=== PATIENT | female | born 1940 | race Caucasian/White ===

== ENCOUNTER 2016-02-28 10:56 | Outpatient (CLI) | payer OTHER ==
[2016-02-28 13:01] LABS: BASOPHILS # (AUTO) 0.1 K/uL (0-0.2); BASOPHILS % (AUTO) 0.8 % (0.0-3.0); EOSINOPHILS # (AUTO) 0.3 K/ul (0.0-0.7); EOSINOPHILS % (AUTO) 4.1 % (0.0-7.0); HEMATOCRIT 46.4 % (37.0-47.0); HEMOGLOBIN 15.2 g/dl (12.0-16.0); IMMATURE GRANULOCYTE % (AUTO) 0.3 % (0.0-5.0); LYMPHOCYTES # (AUTO) 2.3 K/uL (0.60-3.4); LYMPHOCYTES % (AUTO) 31.6 (10.0-50.0); MEAN CORPUSCULAR HEMOGLOBIN 29.3 pg (27.0-31.0); MEAN CORPUSCULAR HGB CONC 32.8 (31.8-35.4); MEAN CORPUSCULAR VOLUME 89.4 fl (81.0-99.0); MONOCYTES # (AUTO) 0.5 K/uL (0.4-2.0); MONOCYTES % (AUTO) 7.4 (0-10); NEUTROPHILS # (AUTO) 4.1 K/ul (2.0-6.9); NEUTROPHILS % (AUTO) 55.8; PLATELET COUNT 209 10^3/uL (140-440); RED BLOOD COUNT 5.19 10^6/ul (4.20-5.40); WHITE BLOOD COUNT 7.29 K/ul (4.6-10.2)
[2016-02-28 13:09] LABS: BILIRUBIN,URINE Negative (NEGATIVE); KETONES,URINE Negative (NEGATIVE); LEUKOCYTE ESTERASE ,URINE 1+ (NEGATIVE); NITRITE,URINE Negative (NEGATIVE); PH,URINE 5.5 (5-9); PROTEIN,URINE Negative (NEGATIVE); URINE, BLOOD Trace-intact (NEGATIVE)
[2016-02-28 13:15] LABS: ADD URINE MICROSCOPIC YES
[2016-02-28 13:19] LABS: BILIRUBIN,TOTAL 0.77 mg/dL (0.00-1.20); CALCIUM 9.3 mg/dL (8.2-10.2); POTASSIUM 3.8 mmol/L (3.5-5.10); TOTAL PROTEIN 7.3 g/dL (5.8-8.1)
[2016-02-28 13:27] LABS: CHOL/HDL RATIO 5.1 (4.5-5.5)
[2016-02-28 16:00] LABS: ANION GAP 14.8
[2016-02-28 16:01] LABS: BUN/CREATININE RATIO 9.9; CREATININE 1.01 mg/dL (0.60-1.30)
[2016-02-28 16:02] LABS: ALBUMIN 3.8 g/dL (3.4-5.0); ALBUMIN/GLOBULIN RATIO 1.09
== END 2016-02-28 10:57 | disposition home or self-care (01) ==
LOC: LAB 10:56
PROVIDERS: ATTEND General Practice
DX: E78.5 Hyperlipidemia, unspecified (principal); I10 Essential (primary) hypertension; N18.3 Chronic kidney disease, stage 3 (moderate); K21.9 Gastro-esophageal reflux disease without esophagitis; G25.81 Restless legs syndrome; I49.3 Ventricular premature depolarization; E88.81 Metabolic syndrome and other insulin resistance; Z79.899 Other long term (current) drug therapy
CPT/HCPCS: 36415; 80053; 80061; 81001; 83525; 85025; 87086

== ENCOUNTER 2016-03-12 10:47 | Outpatient (CLI) ==
--- NOTE | 2016-03-13 10:36 | MAMMO ---
EXAM: Digital screening mammogram HISTORY: Screening mammogram COMPARISON: Plain film mammogram 05/30/2009 FINDINGS: Bilateral CC and MLO views of the breasts were performed digitally and demonstrate fatty breast density (up to 25%). There is no abnormal nodule or calcification. There is no significant i nterval change. IMPRESSION: No suspicious nodule or calcification. RECOMMENDATION: Annual screening mammogram BIRADS category I: Negative
== END 2016-03-12 10:48 | disposition home or self-care (01) ==
LOC: RAD 10:47
PROVIDERS: ATTEND General Practice
DX: Z12.31 Encounter for screening mammogram for malignant neoplasm of breast (principal)

== ENCOUNTER 2016-06-21 08:40 | Outpatient (CLI) ==
[2016-06-21 12:53] LABS: BASOPHILS # (AUTO) 0.1 K/uL (0-0.2); BASOPHILS % (AUTO) 0.7 % (0.0-3.0); EOSINOPHILS # (AUTO) 0.2 K/ul (0.0-0.7); EOSINOPHILS % (AUTO) 3.5 % (0.0-7.0); HEMATOCRIT 45.3 % (37.0-47.0); HEMOGLOBIN 14.9 g/dl (12.0-16.0); IMMATURE GRANULOCYTE % (AUTO) 0.3 % (0.0-5.0); LYMPHOCYTES # (AUTO) 2.2 K/uL (0.60-3.4); LYMPHOCYTES % (AUTO) 31.2 (10.0-50.0); MEAN CORPUSCULAR HEMOGLOBIN 29.6 pg (27.0-31.0); MEAN CORPUSCULAR HGB CONC 32.9 (31.8-35.4); MEAN CORPUSCULAR VOLUME 90.1 fl (81.0-99.0); MONOCYTES # (AUTO) 0.6 K/uL (0.4-2.0); MONOCYTES % (AUTO) 7.9 (0-10); NEUTROPHILS # (AUTO) 3.9 K/ul (2.0-6.9); NEUTROPHILS % (AUTO) 56.4; PLATELET COUNT 191 10^3/uL (140-440); RED BLOOD COUNT 5.03 10^6/ul (4.20-5.40); WHITE BLOOD COUNT 6.95 K/ul (4.6-10.2)
[2016-06-21 13:11] LABS: BILIRUBIN,URINE 1+ (NEGATIVE); KETONES,URINE Negative (NEGATIVE); LEUKOCYTE ESTERASE ,URINE Negative (NEGATIVE); NITRITE,URINE Negative (NEGATIVE); PH,URINE 5.5 (5-9); PROTEIN,URINE Trace (NEGATIVE); URINE, BLOOD Negative (NEGATIVE)
[2016-06-21 13:18] LABS: ADD URINE MICROSCOPIC YES
[2016-06-21 13:22] LABS: ALBUMIN 3.6 g/dL (3.4-5.0); ALBUMIN/GLOBULIN RATIO 0.97; ANION GAP 13.4; BILIRUBIN,TOTAL 0.72 mg/dL (0.00-1.20); BUN/CREATININE RATIO 10.75; CALCIUM 9.1 mg/dL (8.2-10.2); CHOL/HDL RATIO 4.2 (4.5-5.5); CREATININE 0.93 mg/dL (0.60-1.30); POTASSIUM 3.4 mmol/L (3.5-5.10); TOTAL PROTEIN 7.3 g/dL (5.8-8.1)
== END 2016-06-21 08:41 | disposition home or self-care (01) ==
LOC: LAB 08:40
PROVIDERS: ATTEND General Practice
DX: E78.5 Hyperlipidemia, unspecified (principal); I10 Essential (primary) hypertension; N18.3 Chronic kidney disease, stage 3 (moderate); Z79.899 Other long term (current) drug therapy
CPT/HCPCS: 36415; 80053; 80061; 81001; 85025

== ENCOUNTER 2016-06-28 11:03 | Outpatient (CLI) | payer OTHER ==
[2016-06-28 11:38] LABS: CREATINE KINASE 82 U/L
[2016-06-28 11:48] LABS: D-DIMER 332.02 ng/mL (<500)
--- NOTE | 2016-06-28 11:58 | DI ---
EXAM: Chest two view, frontal and lateral views. HISTORY: Chest pain. COMPARISON: 11/27/2010. FINDINGS: The heart size is normal. There is no pulmonary vascular congestion. The lungs are etz r save for calcified granulomatous changes. No pleural effusion or pneumothorax is seen. No acute osseous abnormality identified. Since the prior study, there has been no significant interval wagner e. IMPRESSION: No acute cardiopulmonary process.
== END 2016-06-28 11:04 | disposition home or self-care (01) ==
LOC: LAB 11:03
PROVIDERS: ATTEND General Practice
DX: R07.9 Chest pain, unspecified (principal)
CPT/HCPCS: 36415; 82550; 84484; 85379; 93005; 93010

== ENCOUNTER 2016-09-27 08:39 | Outpatient (CLI) ==
[2016-09-27 12:36] LABS: BASOPHILS # (AUTO) 0.1 K/uL (0-0.2); BASOPHILS % (AUTO) 0.9 % (0.0-3.0); EOSINOPHILS # (AUTO) 0.2 K/ul (0.0-0.7); HEMATOCRIT 43.7 % (37.0-47.0); HEMOGLOBIN 14.5 g/dl (12.0-16.0); IMMATURE GRANULOCYTE % (AUTO) 0.3 % (0.0-5.0); LYMPHOCYTES % (AUTO) 28.9 (10.0-50.0); MEAN CORPUSCULAR HEMOGLOBIN 29.5 pg (27.0-31.0); MEAN CORPUSCULAR HGB CONC 33.2 (31.8-35.4); MONOCYTES # (AUTO) 0.5 K/uL (0.4-2.0); MONOCYTES % (AUTO) 7.8 (0-10); NEUTROPHILS # (AUTO) 4.1 K/ul (2.0-6.9); NEUTROPHILS % (AUTO) 59.1; PLATELET COUNT 188 10^3/uL (140-440); RED BLOOD COUNT 4.91 10^6/ul (4.20-5.40); WHITE BLOOD COUNT 6.92 K/ul (4.6-10.2)
[2016-09-27 12:50] LABS: BILIRUBIN,URINE Negative (NEGATIVE); KETONES,URINE Negative (NEGATIVE); LEUKOCYTE ESTERASE ,URINE Negative (NEGATIVE); NITRITE,URINE Negative (NEGATIVE); PROTEIN,URINE Negative (NEGATIVE); URINE, BLOOD Trace-intact (NEGATIVE)
[2016-09-27 12:55] LABS: ADD URINE MICROSCOPIC YES
[2016-09-27 13:03] LABS: BACTERIA,URINE TRACE (NOT PRESENT)
[2016-09-27 13:05] LABS: ALBUMIN 3.8 g/dL (3.4-5.0); ALBUMIN/GLOBULIN RATIO 1.15; ANION GAP 17.7; BILIRUBIN,TOTAL 0.87 mg/dL (0.00-1.20); BUN/CREATININE RATIO 12.06; CALCIUM 9.6 mg/dL (8.2-10.2); CHOL/HDL RATIO 4.5 (4.5-5.5); CREATININE 1.16 mg/dL (0.60-1.30); POTASSIUM 3.7 mmol/L (3.5-5.10); TOTAL PROTEIN 7.1 g/dL (5.8-8.1)
== END 2016-09-27 08:40 | disposition home or self-care (01) ==
LOC: LAB 08:39
PROVIDERS: ATTEND General Practice
DX: E78.5 Hyperlipidemia, unspecified (principal); I10 Essential (primary) hypertension; K21.9 Gastro-esophageal reflux disease without esophagitis; N18.3 Chronic kidney disease, stage 3 (moderate); Z79.899 Other long term (current) drug therapy
CPT/HCPCS: 36415; 80053; 80061; 81001; 85025

== ENCOUNTER 2016-12-02 14:38 | Observation (INO) ==
[2016-12-02 16:22] VITALS: BMI 30.2
[2016-12-02 16:52] LABS: BASOPHILS # (AUTO) 0.1 K/uL (0-0.2); BASOPHILS % (AUTO) 0.6 % (0.0-3.0); EOSINOPHILS # (AUTO) 0.1 K/ul (0.0-0.7); EOSINOPHILS % (AUTO) 1.4 % (0.0-7.0); HEMATOCRIT 42.5 % (37.0-47.0); HEMOGLOBIN 14.6 g/dl (12.0-16.0); IMMATURE GRANULOCYTE % (AUTO) 0.4 % (0.0-5.0); LYMPHOCYTES % (AUTO) 20.9 (10.0-50.0); MEAN CORPUSCULAR HEMOGLOBIN 29.4 pg (27.0-31.0); MEAN CORPUSCULAR HGB CONC 34.4 (31.8-35.4); MEAN CORPUSCULAR VOLUME 85.5 fl (81.0-99.0); MONOCYTES # (AUTO) 0.8 K/uL (0.4-2.0); MONOCYTES % (AUTO) 8.1 (0-10); NEUTROPHILS # (AUTO) 6.6 K/ul (2.0-6.9); NEUTROPHILS % (AUTO) 68.6; PLATELET COUNT 201 10^3/uL (140-440); RED BLOOD COUNT 4.97 10^6/ul (4.20-5.40); WHITE BLOOD COUNT 9.55 K/ul (4.6-10.2)
[2016-12-02 17:33] LABS: ALANINE AMINOTRANSFERASE 25 U/L (12-78); ALBUMIN 3.7 g/dL (3.4-5.0); ALBUMIN/GLOBULIN RATIO 1.06; ALKALINE PHOSPHATASE 112 U/L (53-141); ANION GAP 15.6; ASPARTATE AMINO TRANSFERASE 28 U/L (15-37); BILIRUBIN,TOTAL 0.61 mg/dL (0.00-1.20); BLOOD UREA NITROGEN 12 mg/dL (7-18); BUN/CREATININE RATIO 12.24; CALCIUM 9.7 mg/dL (8.2-10.2); CARBON DIOXIDE 21 mmol/L (23-31); CHLORIDE 111 mmol/L (98-107); CHOL/HDL RATIO 4.6 (4.5-5.5); CHOLESTEROL 151 mg/dL (0-200); CREATINE KINASE 68 U/L; CREATININE 0.98 mg/dL (0.60-1.30); GLUCOSE 93 mg/dL (82-115); HDL CHOLESTEROL 33 mg/dL (35-80); MYOGLOBIN 82 ng/ml; POTASSIUM 3.6 mmol/L (3.5-5.10); SODIUM 144 mmol/L (136-145); TOTAL PROTEIN 7.2 g/dL (5.8-8.1); TRIGLYCERIDES 206 mg/dL (30-150); VLDL CHOLESTEROL 41 mg/dL (2-30)
[2016-12-02 18:28] LABS: BILIRUBIN,URINE Negative (NEGATIVE); KETONES,URINE Negative (NEGATIVE); LEUKOCYTE ESTERASE ,URINE Negative (NEGATIVE); NITRITE,URINE Negative (NEGATIVE); PROTEIN,URINE Negative (NEGATIVE); URINE, BLOOD Trace-intact (NEGATIVE)
--- NOTE | 2016-12-02 18:28 | DI ---
EXAM: Two-view chest HISTORY: Chest discomfort TECHNIQUE: Frontal and lateral views of the chest were obtained. Comparison 06/28/2016. FINDINGS: The heart is normal size. Lungs are clear. The pulmonary vasculature appears normal. Th e osseous structures are normal. IMPRESSION: No active cardiopulmonary disease.
[2016-12-02 18:29] LABS: ADD URINE MICROSCOPIC YES
[2016-12-02] MEDS ORDERED: ADDITIVE ONLY IV SCH (18:30)
[2016-12-02] MEDS ORDERED: POTASSIUM CHLORIDE IV SCH (18:30)
[2016-12-02] MEDS ORDERED: [UNRECOGNIZED DRUG - OTHER] IV SCH (18:30)
[2016-12-02] MEDS ORDERED: INFUVITE ADULT IV SCH (18:30)
[2016-12-02] MEDS ORDERED: INFUVITE ADULT IV ONE (19:08)
[2016-12-02] MEDS: INFUVITE ADULT 10 ML in D5%-1/2NS-KCL 20 MEQ/L IV SOL 1,000 ML IV SCH (19:30)
[2016-12-02] MEDS: LOVENOX SUBCUT SCH (19:31)
[2016-12-02] MEDS ORDERED: ATORVASTATIN CALCIUM 5 MG PO SCH (21:00)
[2016-12-03 05:05] LABS: BASOPHILS # (AUTO) 0.1 K/uL (0-0.2); BASOPHILS % (AUTO) 0.6 % (0.0-3.0); EOSINOPHILS # (AUTO) 0.2 K/ul (0.0-0.7); HEMATOCRIT 39.7 % (37.0-47.0); HEMOGLOBIN 13.5 g/dl (12.0-16.0); IMMATURE GRANULOCYTE % (AUTO) 0.2 % (0.0-5.0); LYMPHOCYTES # (AUTO) 2.7 K/uL (0.60-3.4); MEAN CORPUSCULAR HEMOGLOBIN 29.4 pg (27.0-31.0); MEAN CORPUSCULAR VOLUME 86.5 fl (81.0-99.0); MONOCYTES # (AUTO) 0.7 K/uL (0.4-2.0); MONOCYTES % (AUTO) 8.3 (0-10); NEUTROPHILS # (AUTO) 4.5 K/ul (2.0-6.9); NEUTROPHILS % (AUTO) 54.9; PLATELET COUNT 185 10^3/uL (140-440); RED BLOOD COUNT 4.59 10^6/ul (4.20-5.40); WHITE BLOOD COUNT 8.11 K/ul (4.6-10.2)
[2016-12-03 05:36] LABS: ALBUMIN 3.3 g/dL (3.4-5.0); ANION GAP 11.4; BUN/CREATININE RATIO 10.98; CALCIUM 9.1 mg/dL (8.2-10.2); CREATININE 0.91 mg/dL (0.60-1.30); PHOSPHORUS 3.1 mg/dL (2.8-4.1); POTASSIUM 3.4 mmol/L (3.5-5.10)
[2016-12-03] MEDS ORDERED: ATROPINE SULFATE PFS ONE (07:16)
[2016-12-03] MEDS ORDERED: DOBUTAMINE 250 ML IV ONE (07:16)
[2016-12-03] MEDS: NON-FORMULARY MEDICATION (Esomeprazole Magnesium [Nexium] 20 MG) PO SCH ×22 (08:45)
[2016-12-03] MEDS: NON-FORMULARY MEDICATION (Losartan Potassium [Cozaar] 100 MG) PO SCH ×22 (08:46)
[2016-12-03] MEDS: GABAPENTIN 100 MG PO PRN ×22 (08:46)
[2016-12-03] MEDS: NON-FORMULARY MEDICATION (Amlodipine Besylate [Amlodipine Besylate] 10 MG) PO SCH ×22 (08:46)
[2016-12-03] MEDS: LOVENOX SUBCUT SCH (08:47)
[2016-12-03] MEDS ORDERED: ATORVASTATIN CALCIUM 10 MG PO SCH ×22 (09:00)
--- NOTE | 2016-12-03 09:49 | DOBSTECHO ---
Ordering Physician: MARISSA SIMMONS Date of Test: 12/03/16 Reason for Examination: CHEST PAIN, HYPERTENSION, CAD Current Medications: MECLIZINE, NEXIUM, LIPITOR, COZAAR, GABAPENTIN Height: 66" Weight: 187 LBS Target Heart Rate: 123/145 ST Segment Stage Time HR BPM BP mmhg Rhythm +/- Up Down Comments/Symptoms Control Sitting 94 170/82 SR X NONE Dobutamine 250mg/D5W 5cmg/KG/mn 10cmg/KG/mn 3" 114 172/70 SR X NONE 15cmg/KG/mn 1:27 131 SR X NONE 20cmg/KG/mn 25cmg/KG/mn 30cmg/KG/mn 35cmg/KG/mn 40cmg/KG/mn Time: 3" HR B/P Time: 8 HR B/P Time: HR B/P Recovery 123 158/72 Recovery 100 Recovery Total Time: 4:27 Maximum Heart Rate Reached: 131 Interpretation: 1. NO EVIDENCE OF ISCHEMIA BY ST-T WAVE 2. NO CHEST PAIN OR DISCOMFORT 3. LEFT VENTRICULAR CONTRACTILITY--NORMAL RESTING AND DURING DOBUTAMINE INFUSION MTDD
--- NOTE | 2016-12-03 09:52 | ECHOSTRESS ---
Date of Exam: 12/03/16 Ordering Physician: AMRISSA SIMMONS Reason for Echo: CAD, CHEST PAIN, HYPERTENSION, DOBUTAMINE STRESS--NO ISCHEMIA M-Mode Normal Adult Results LV Dimensions Normal Adult Results AoV Opening excursions >1.6 LVEDD-base- 3.5-5.8 Ao root dimensions 2.0-3.7 LVESD-base- 3.1-4.6 L. Atrium dimensions 1.9-3.8 Post. Wall thickness 0.8-1.1 IV septum (thickness) 0.7-1.2 Post. Wall excursion 0.72-1.3 Septal motion Systolic motion R. Ventricular cavity 1.5-2.0 LVEF 60% Paradoxical septal wall motion 2-D: NORMAL LEFT VENTRICULAR CONTRACTILITY--RESTING AND DURING DOBUTAMINE INFUSION M-MODE: MV: AV: TV: PV: CHAMBER SIZE: WALL MOTION: NORMAL LEFT VENTRICULAR CONTRACTILITY--RESTING AND DURING DOBUTAMINE INFUSION PERICARDIUM: INTERPRETATION: 1. NORMAL LEFT VENTRICULAR CONTRACTILITY--RESTING AND DURING DOBUTAMINE INFUSION MTDD
--- NOTE | 2016-12-03 10:26 | ECHO2D ---
Date of Exam: 12/03/16 Ordering Physician: MARISSA SIMMONS Room #: [id number] Reason for Echo: CHEST PAIN, HYPERTENSION, CAD M-Mode Normal Adult Results LV Dimensions Normal Adult Results AoV Opening excursions >1.6 >1.6 LVEDD-base- 3.5-5.8 5.0 Ao root dimensions 2.0-3.7 3.2 LVESD-base- 3.1-4.6 L. Atrium dimensions 1.9-3.8 5.1 Post. Wall thickness 0.8-1.1 1.1 IV septum (thickness) 0.7-1.2 1.0 Post. Wall excursion 0.72-1.3 NORMAL Septal motion NORMAL Systolic motion R. Ventricular cavity 1.5-2.0 NORMAL LVEF 60% 50% Paradoxical septal wall motion NORMAL 2-D : NORMAL LEFT VENTRICULAR CONTRACTILITY--NORMAL LEFT VENTRICLE SIZE, ENLARGED LEFT ATRIAL SIZE, NO EFFUSION, NO THROMBUS M-MODE: MV: NORMAL AV: NORMAL TV: NORMAL PV: CHAMBER SIZE: ENLARGED LEFT ATRIAL CAVITY WALL MOTION: NORMAL PERICARDIUM: NORMAL INTERPRETATION: 1. ENLARGED LEFT ATRIAL CAVITY 2. NORMAL VALVES 3. NORMAL LEFT VENTRICLE SIZE 4. NORMAL LEFT VENTRICLE EJECTION FRACTION 50% MTDD
--- NOTE | 2016-12-03 11:27 | CONS ---
DATE OF CONSULTATION: 12/02/16 REASON FOR CONSULTATION/HISTORY OF PRESENT ILLNESS: 76 year old white female who is a direct admit from Dr. Velez's office with right sided chest pain. She states that the pain originated on 11/27/16 in the middle of her chest on the breast bone and then over the next several days moved down into the tissue to the right of her breast bone and radiating to her right shoulder. She is not experiencing any shortness of breath. She describes the pain of dull tissue pain, it comes and goes and isn't related to exertion. She does have a history of hyperglycemia,dyslipidemia and hypertension along with Metabolic syndrome. REVIEW OF SYSTEMS: CONSTITUTIONAL: No night sweats. No fatigue, malaise, lethargy. No fever or chills. HEENT: Eyes: No visual changes. No eye pain. No eye discharge. ENT: No sinus drainage. No epistaxis. No sinus pain. No sore throat. No odynophagia. No ear pain. No congestion. RESPIRATORY: No cough, no congestion. No hemoptysis. No shortness of breath. CARDIOVASCULAR: No angina symptoms. No CHF symptoms. No atypical chest pain for CAD. No palpitations. No orthopnea. Sternal pain radiating to the right scapula. GASTROINTESTINAL: No abdominal pain. No nausea or vomiting. No diarrhea or constipation. No hematemesis. No hematochezia. GENITOURINARY: No urgency. No frequency. No dysuria. No hematuria. No obstructive symptoms. No discharge. No pain. No significant abnormal bleeding. MUSCULOSKELETAL: No musculoskeletal pain. No joint swelling. Full range of motion. NEUROLOGICAL: No headache. No neck pain. No syncope. No seizures. No dizziness. Alert and oriented. PSYCHIATRIC: Not anxious. No depression. No suicidal thoughts. No homicidal thoughts. Affect and mood are appropriate. SKIN: No rash. No lesions. No wounds. Intact. ENDOCRINE: No unexplained weight loss. No weight gain. HEMATOLOGIC/LYMPHATIC: No anemia. No purpura. No petechiae. No prolonged or excessive bleeding. No palpable lymph nodes. MEDICATIONS: Meclizine 25mg PO PRN Losartan 100mg PO daily Neurontin 100mg at bedtime Lipitor 10mg daily Norvasc 10mg daily Nexium 20mg daily ALLERGIES: Requip PAST MEDICAL HISTORY: Chronic kidney disease GERD Dyslipidemia Hypertension Metabolic syndrome Restless leg syndrome History of left nasal septum deviation Hyperglycemia Obesity Macular degeneration PAST SURGICAL HISTORY: Colonoscopy in August 2011 Stress test in 2009 at [facility] EKG and Chest x-ray on 07/03 at [place] Mammogram February 2016 at [place]. Cholecystectomy, 1984 SOCIAL/PERSONAL/FAMILY HISTORY: The patient has never been a smoker, she denies any alcohol or illicit drug use. PHYSICAL EXAMINATION: VITAL SIGNS: Temperature 97.7, heart rate 98, respirations 20, pulse ox 96, blood pressure 142/82. 187 pounds. HEENT: Head normocephalic, atraumatic. Eyes: Extraocular muscles are intact. Pupils are equal, round and reactive to light and accommodation. Ears: No lesions. Nose appeared normal. Throat: No exudate or erythema. NECK: Supple. No JVD, no carotid bruit. No lymphadenopathy or thyromegaly. LUNGS: Clear with diminished breath sounds bilaterally equal with no adventitious breath sounds. Percussion note normal. Chest symmetrical. HEART: S1, S2, no S3. No murmurs, clicks or rubs. No cyanosis or clubbing. No ascites. Pulses: Dorsalis pedis and posterior tibial pulses +1 to +2 both sides. ABDOMEN: Soft. Nontender. Bowel sounds active times four quadrant. No CVA tenderness. No mass felt. No hepatosplenomegaly. EXTREMITIES: No edema. Full range of motion of all extremities, equal. No joint swelling. Negative Homans's sign bilaterally. NEUROLOGIC: No focal deficit. Cranial nerves II through XII are grossly intact. No headache, no double vision or headache. Alert and oriented to person, place and time. SKIN: Dry. Intact. Turgor - normal. [place] and warm. LYMPHATIC: No palpable lymph nodes/no lymphedema. MUSCULOSKELETAL: Normal joints with no swelling. Muscle tone is normal. ASSESSMENT: 1. Midchest pain 2. Atypical chest pain 3. Hypertension 4. Dyslipidemia 5. Obesity 6. Hyperglycemia RECOMMENDATIONS: 1. We will do Lipids, T4 TSH and A1c 2. The patient is to continue on routine telemetry 3. She will have a CBC and CMP daily 4. Will do Echo and Stress echo tomorrow morning 5. All Cardiac markers will be monitored 6. EKG and chest x-ray 7. Continue Nexium, Norvasc, Losartan, Neurontin and Lipitor. MTDD
[2016-12-03] MEDS ORDERED: K-DUR PO STA (13:23)
[2016-12-03] MEDS: INFUVITE ADULT 10 ML in D5%-1/2NS-KCL 20 MEQ/L IV SOL 1,000 ML IV SCH (20:05)
[2016-12-03] MEDS ORDERED: LIPITOR PO SCH (21:00)
[2016-12-04 06:09] VITALS: TEMP 98.1
[2016-12-04] MEDS ORDERED: K-DUR PO SCH (08:00)
[2016-12-04] MEDS: LOVENOX SUBCUT SCH (08:26)
[2016-12-04] MEDS: NON-FORMULARY MEDICATION (Amlodipine Besylate [Amlodipine Besylate] 10 MG) PO SCH ×22 (09:22)
[2016-12-04] MEDS: NON-FORMULARY MEDICATION (Losartan Potassium [Cozaar] 100 MG) PO SCH ×22 (09:22)
[2016-12-04] MEDS: NON-FORMULARY MEDICATION (Esomeprazole Magnesium [Nexium] 20 MG) PO SCH ×22 (09:23)
[2016-12-04] MEDS: GABAPENTIN 100 MG PO PRN ×22 (09:23)
--- NOTE | 2016-12-04 09:47 | CT ---
EXAM: CT scan thorax with contrast HISTORY: Right-sided pain COMPARISON: CT scan thorax 11/06/2009 FINDINGS: Contiguous axial images obtained through the thorax following uneventful administration in travenous contrast utilizing 5-mm collimation. Sagittal and coronal reconstructions were imaged and reviewed. The thoracic inlet is unremarkable. Calcified lymph nodes are seen within the pretracheal , subcarinal right hilar region. The heart is normal in size without pericardial effusion. There is mild coronary artery calcification. There are benign granulomatous changes. There is minimal depend ent atelectasis at the left lung base.. Fatty infiltration is seen within the liver. There is likel y left-sided parapelvic cysts incompletely visualized. There is a small hiatal hernia. Bone windows reveals no evidence of lytic or blastic lesions. IMPRESSION: No acute abnormality within the thorax. Minimal dependent atelectasis left lung base Benign granulomatous changes. Small hiatal hernia.. Fatty liver.
[2016-12-04 09:58] VITALS: BP 140/76
--- NOTE | 2016-12-05 13:47 | CONS ---
DATE OF SERVICE: 12/03/16 CONSULT FOLLOWUP SUBJECTIVE: The patient is being seen for consultation for chest pain right upper sternal area unrelated to exertion. REVIEW OF SYSTEMS: CONSTITUTIONAL: No night sweats. No fatigue, malaise, lethargy. No fever or chills. HEENT: Eyes: No visual changes. No eye pain. No eye discharge. ENT: No runny nose. No epistaxis. No sinus pain. No sore throat. No odynophagia. No ear pain. No congestion. RESPIRATORY: No cough, no congestion. No hemoptysis. CARDIOVASCULAR: No angina symptoms. No CHF symptoms. No atypical chest pain for CAD. No palpitations. No shortness of breath. No PND. No Orthopnea. GASTROINTESTINAL: No abdominal pain. No nausea or vomiting. No diarrhea or constipation. No hematemesis. No hematochezia. GENITOURINARY: No urgency. No frequency. No dysuria. No hematuria. No obstructive symptoms. No discharge. No pain. No significant abnormal bleeding. MUSCULOSKELETAL: No musculoskeletal pain. No joint swelling. No arthritis. NEUROLOGICAL: No headache. No neck pain. No syncope. No seizures. No dizziness. PSYCHIATRIC: Not anxious. No depression. No suicidal thoughts. No homicidal thoughts. SKIN: No rash. No lesions. No wounds. ENDOCRINE: No unexplained weight loss. No weight gain. HEMATOLOGIC/LYMPHATIC: No anemia. No purpura. No petechiae. No prolonged or excessive bleeding. No palpable lymph nodes. PHYSICAL EXAMINATION: GENERAL: The patient is oriented to time, place and person. HEENT: Head normocephalic, atraumatic. Eyes: Extraocular muscles are intact. Pupils are equal, round and reactive to light and accommodation. Ears: No lesions. Nose appeared normal. Throat: No exudate or erythema. NECK: Supple. No JVD, no carotid bruit. No lymphadenopathy or thyromegaly. LUNGS: Decreased breath sounds but clear to auscultation. Percussion note normal. Chest symmetrical. HEART: S1, S2, no S3. No murmurs. No cyanosis or clubbing. No ascites. Pulses: Dorsalis pedis and posterior tibial pulses +1 to +2 both sides. ABDOMEN: Soft. Nontender. Bowel sounds active. No CVA tenderness. No mass felt. EXTREMITIES: No edema. Full range of motion of all extremities, equal. NEUROLOGIC: No focal deficit. Cranial nerves II through XII are grossly intact. No headache, no double vision or headache. SKIN: Not dry. Intact. Turgor - normal. LYMPHATIC: No palpable lymph nodes/no lymphedema. MUSCULOSKELETAL: Normal joints with no swelling. Muscle tone is normal. RADIOLOGICAL FINDINGS: the patient's EKG and cardiac markers are negative. Telemetry doesn't show any ST-T wave changes of any significance. The patient underwent Stress test which was negative for ischemia. Stress echo was negative for ischemia with normal LV contractility. ASSESSMENT: 1. Chest pain seems to be noncardiac so far. CARDIOVASCULAR STATUS: Stable MTDD
--- NOTE | 2016-12-05 13:49 | CONS ---
The patient was seen on Consultation 12/02/16 and 12/03/16. 12/02/16: Level 5 12/03/16: Intermediate MTDD
--- NOTE | 2016-12-05 13:55 | CONS ---
DATE OF SERVICE: 12/02/16 SUBJECTIVE: The patient was hospitalized from the office after being seen by Primary MD with complaint of right sternal pain. The patient's pain is steady ache, localized, comes and goes, questionable shortness of breath. No PND. No Orthopnea. Mostly the patient is nonexertional. The patient also has reflux type of symptoms. REVIEW OF SYSTEMS: CONSTITUTIONAL: No night sweats. No fatigue, malaise, lethargy. No fever or chills. HEENT: Eyes: No visual changes. No eye pain. No eye discharge. ENT: No runny nose. No epistaxis. No sinus pain. No sore throat. No odynophagia. No ear pain. No congestion. RESPIRATORY: No cough, no congestion. No hemoptysis. CARDIOVASCULAR: No angina symptoms. No CHF symptoms. No atypical chest pain for CAD. No palpitations. No shortness of breath. GASTROINTESTINAL: No abdominal pain. No nausea or vomiting. No diarrhea or constipation. No hematemesis. No hematochezia. GENITOURINARY: No urgency. No frequency. No dysuria. No hematuria. No obstructive symptoms. No discharge. No pain. No significant abnormal bleeding. MUSCULOSKELETAL: No musculoskeletal pain. No joint swelling. No arthritis. NEUROLOGICAL: No headache. No neck pain. No syncope. No seizures. No dizziness. PSYCHIATRIC: Not anxious. No depression. No suicidal thoughts. No homicidal thoughts. SKIN: No rash. No lesions. No wounds. ENDOCRINE: No unexplained weight loss. No weight gain. HEMATOLOGIC/LYMPHATIC: No anemia. No purpura. No petechiae. No prolonged or excessive bleeding. No palpable lymph nodes. PHYSICAL EXAMINATION: HEENT: Head normocephalic, atraumatic. Eyes: Extraocular muscles are intact. Pupils are equal, round and reactive to light and accommodation. Ears: No lesions. Nose appeared normal. Throat: No exudate or erythema. NECK: Supple. No JVP, no carotid bruit. No lymphadenopathy or thyromegaly. LUNGS: Decreased breath sounds but clear to auscultation. Percussion note normal. Chest symmetrical. HEART: S1, S2, no S3. No murmurs. No cyanosis or clubbing. No ascites. Pulses: Dorsalis pedis and posterior tibial pulses +1 to +2 both sides. ABDOMEN: Soft. Nontender. Bowel sounds active. No CVA tenderness. No mass felt. EXTREMITIES: No edema. Full range of motion of all extremities, equal. NEUROLOGIC: No focal deficit. Cranial nerves II through XII are grossly intact. No headache, no double vision or headache. SKIN: Not dry. Intact. Turgor - normal. LYMPHATIC: No palpable lymph nodes/no lymphedema. MUSCULOSKELETAL: Normal joints with no swelling. Muscle tone is normal. ASSESSMENT: 1. Chest pain, seems to be noncardiac by history RECOMMENDATIONS: 1. Telemetry 2. Cardiac markers 3. Echocardiogram 4. Dobutamine stress echo, the patient had Dobutamine Stress echo done at [facility] in 2009 which was reported as normal. CONDITION: Stable will follow. Whole history of physical was done with Nurse Practitioner IDANIA
--- NOTE | 2016-12-24 09:43 | PN ---
DATE OF VISIT: SUBJECTIVE: The patient today is alert with out any distress. She does have some pain still in the right anterior chest. The Dobutamine Stress was negative for ischemia and the echocardiogram showed a decreased left ventricular ejection fraction 50% . Valves were normal, left atrial cavity enlarged, normal left ventricular size and normal left ventricular ejection fraction at 50%. The patient's is scheduled for a CT scan of the chest with contrast tomorrow to rule out any vascular pathology such as dissecting aneurysm. This was explained to the patient. The maybe done at any time if she would have intensification of the pain. VITAL SIGNS: Temperature 98.1, pulse 84, blood pressure 138/82, respiratory failure 16 and oxygen saturation 97% at room air. She consumed 90% of her lunch. MTDD
--- NOTE | 2017-01-03 08:41 | DS ---
DATE OF SERVICE: 12/04/16 (DISCHARGE) PATIENT IDENTIFICATION: 76-year-old female who initially experienced anterior chest pain, sternal area five days prior to admission and the pain moved to the right anterior chest the following day radiating directly to the back, right scapular area. The pain was not accompanied by diaphoresis or nausea. The patient still had pain at presentation to the office five days from initiation and after examination was advised admission for further studies of the problem. The patient was agreeable. The patient, during this admission had the following test, Dobutamine stress negative for any ischemia by ST-T changes. Echocardiogram normal, left ventricular ejection fraction of 50%, slightly enlarged left atrial cavity otherwise unremarkable. CT scan of the chest with contrast, no acute abnormality within the thorax, minimal dependent atelectasis, left lung base, benign granulomatous changes in the lungs, small hiatal hernia, fatty liver. The patient had two CBCs showing essentially unchanged findings and normal, two CMPs showing slightly lower potassium 3.6 to 3.4, EGFR between 55 to 60, creatinine 0.98 and 0.91, BUN 12 and 10 respectively. Lipid panel shows slightly elevated triglyceride at 206, VLDL 33, total cholesterol 151, LDL cholesterol 77, HDL 33, TSH 1.870, free T4 1.10. Troponin normal, less than 0.0100. Myoglobin 82, total CK 68. The patient, prior to discharge was examined and the patient felt better and the pain seemed to have resolved. The color was good, lungs clear to auscultation. Heart audible and regular with good tones. Abdomen soft with no significant tenderness. Bowel sounds were active. The patient was advised that the test done including CT scan of the chest does not show any blood vessel problems such as aneurysm or dissecting blood vessels; that the stress test was negative for any ischemia meaning lack of blood to the heart during exercise and the echocardiogram appears to be without any significant abnormalities. The patient is then discharged with instruction to continue the same medication and see me one week from the time of discharge or more and to return to the office if she has more problems or to the emergency room if the office is closed. FINAL DIAGNOSES: 1. ANTERIOR CHEST PAIN, ETIOLOGY UNDETERMINED, RESOLVED 2. CHEST PAIN, RIGHT ANTERIOR CHEST RADIATING TO THE BACK, RESOLVED, CAUSE UNDETERMINED 3. HYPERTENSION, CONTROLLED ON TREATMENT 4. ELEVATED BMI 5. HISTORY OF GERD 6. HISTORY OF RESTLESS LEG SYNDROME MTDD
== END 2016-12-04 13:56 | disposition home or self-care (01) ==
LOC: MEDSURG A 14:38
PROVIDERS: ADMIT General Practice; ATTEND General Practice
DX: R07.89 Other chest pain (principal); I51.7 Cardiomegaly; I10 Essential (primary) hypertension; E78.5 Hyperlipidemia, unspecified; E66.9 Obesity, unspecified; R73.9 Hyperglycemia, unspecified; K21.9 Gastro-esophageal reflux disease without esophagitis; K44.9 Diaphragmatic hernia without obstruction or gangrene; K76.0 Fatty (change of) liver, not elsewhere classified; J98.11 Atelectasis; G25.81 Restless legs syndrome; Z79.899 Other long term (current) drug therapy
CPT/HCPCS: 36415; 80053; 80061; 80069; 81001; 82550; 83036; 83874; 84439; 84443; 84484; 85025; 93005; 93010

== ENCOUNTER 2017-01-15 13:01 | Outpatient (CLI) ==
[2017-01-15 13:21] LABS: ALBUMIN 3.5 g/dL (3.4-5.0); BUN/CREATININE RATIO 15.21; CALCIUM 9.2 mg/dL (8.2-10.2); CHOL/HDL RATIO 4.7 (4.5-5.5); CREATININE 0.92 mg/dL (0.60-1.30); PHOSPHORUS 3.1 mg/dL (2.8-4.1)
[2017-01-15 13:24] LABS: BILIRUBIN,URINE Negative (NEGATIVE); KETONES,URINE Trace (NEGATIVE); LEUKOCYTE ESTERASE ,URINE Trace (NEGATIVE); NITRITE,URINE Negative (NEGATIVE); PH,URINE 5.5 (5-9); PROTEIN,URINE Negative (NEGATIVE); URINE, BLOOD Negative (NEGATIVE)
[2017-01-15 13:41] LABS: ADD URINE MICROSCOPIC YES
[2017-01-15 13:51] LABS: BACTERIA,URINE TRACE (NOT PRESENT)
== END 2017-01-15 13:02 | disposition home or self-care (01) ==
LOC: LAB 13:01
PROVIDERS: ATTEND General Practice
DX: E78.5 Hyperlipidemia, unspecified (principal); I10 Essential (primary) hypertension; N18.3 Chronic kidney disease, stage 3 (moderate); Z79.899 Other long term (current) drug therapy
CPT/HCPCS: 36415; 80061; 80069; 81001

== ENCOUNTER 2017-05-19 14:37 | Outpatient (CLI) | END 2017-05-19 14:38 | disposition home or self-care (01) | LOC: FCC-LAB 14:37 | PROVIDERS: ATTEND General Practice | DX: I10 Essential (primary) hypertension (principal); N18.3 Chronic kidney disease, stage 3 (moderate); E78.5 Hyperlipidemia, unspecified; Z79.899 Other long term (current) drug therapy | CPT/HCPCS: 36415; 80053; 80061; 81001; 85025 ==

== ENCOUNTER 2017-07-23 11:09 | Outpatient (CLI) | payer OTHER | END 2017-07-23 11:10 | disposition home or self-care (01) | LOC: CAR 11:09 | PROVIDERS: ATTEND General Practice | DX: I49.9 Cardiac arrhythmia, unspecified (principal); R00.0 Tachycardia, unspecified | CPT/HCPCS: 93005; 93010 ==

== ENCOUNTER 2017-12-01 10:49 | Outpatient (CLI) | END 2017-12-01 10:50 | disposition home or self-care (01) | LOC: FCC-LAB 10:49 | PROVIDERS: ATTEND General Practice | DX: E78.5 Hyperlipidemia, unspecified (principal); I10 Essential (primary) hypertension; N18.3 Chronic kidney disease, stage 3 (moderate); Z79.899 Other long term (current) drug therapy | CPT/HCPCS: 36415; 80053; 80061; 81001; 85025 ==

== ENCOUNTER 2017-12-18 17:50 | Outpatient (CLI) | END 2017-12-18 17:51 | disposition home or self-care (01) | LOC: LAB 17:50 | PROVIDERS: ATTEND General Practice | DX: I49.3 Ventricular premature depolarization (principal); I10 Essential (primary) hypertension; R06.09 Other forms of dyspnea; E78.5 Hyperlipidemia, unspecified; N18.3 Chronic kidney disease, stage 3 (moderate); Z79.899 Other long term (current) drug therapy; R74.0 Nonspecific elevation of levels of transaminase and lactic acid dehydrogenase [LDH] | CPT/HCPCS: 36415; 83880 ==

== ENCOUNTER 2018-02-13 15:49 | Outpatient (CLI) | END 2018-02-13 15:50 | disposition home or self-care (01) | LOC: RHC-LAB 15:49 | PROVIDERS: ATTEND General Practice | DX: R05 Cough (principal) | CPT/HCPCS: 87502; 87801 ==

== ENCOUNTER 2018-04-09 08:03 | Outpatient (CLI) | payer OTHER | END 2018-04-09 08:04 | disposition home or self-care (01) | LOC: RHC-LAB 08:03 | PROVIDERS: ATTEND General Practice | DX: N18.3 Chronic kidney disease, stage 3 (moderate) (principal); I10 Essential (primary) hypertension; E78.5 Hyperlipidemia, unspecified; Z87.19 Personal history of other diseases of the digestive system; Z79.899 Other long term (current) drug therapy | CPT/HCPCS: 36415; 80053; 80061; 81001; 85025 ==

== ENCOUNTER 2018-04-28 06:33 | Day surgery (SDC) | payer OTHER ==
[2018-04-28] MEDS ORDERED: LIDOCAINE 1% 20 ML MDV ID STA (07:11)
[2018-04-28 07:16] VITALS: TEMP 97.6
[2018-04-28] MEDS ORDERED: DIPRIVAN 20 ML VIAL IVP ONE (09:10)
[2018-04-28] MEDS ORDERED: VERSED ONE (09:10)
[2018-04-28 12:17] VITALS: BP 129/51
--- NOTE | 2018-04-29 10:02 | OP ---
INDICATIONS FOR PROCEDURE: 77 year old female who presents for colonoscopy exam. She was hospitalized earlier this year with heme positive stools and anemia. She is found to have AVM's on upper endoscopy. She has remote history of colon polyps with last colonoscopy in 2011. She presents for colonoscopy exam today. MEDICATIONS: SEE ANESTHESIA NOTES. PROCEDURE: COLONOSCOPY. SNARE POLYPECTOMY. ENDOCLIP THERAPY. REPORT: The risks, benefits, alternatives and limitations were discussed in detail with the patient. Informed consent was obtained. After adequate sedation was achieved, a digital rectal exam revealed good tone, no masses. The colonoscope was introduced into the rectum and advanced under direct visual guidance to the cecum. The cecum was identified by the appendiceal orifice and IC valve. I then slowly withdrew the scope in circumferential manner and examined the mucosa quite carefully. I looked on the proximal and distal sides of the folds and flexures as best as possible. In the cecum in the proximal ascending colon area there was 4 polyps. A few range in size from 6mm to 11mm. The 11mm one was semi-sessile. All four of these were removed by Snare technique. The larger polyp had a MRI compatible clip placed post polypectomy. There was no bleeding noted. Withdrawing the scope further revealed 2 medium size lipomas in the beginning of the hepatic flexure area. At the distal hepatic flexure area there was 6 polyps ranging in size from 4mm to 7mm all removed by snare technique. The two largest polyps were retrieved. Withdrawing the scope further revealed a semi-sessile 6mm polyp in the transverse colon which was removed by snare technique and retrieved. In the proximal descending there was a pedunculated 9mm polyp that I removed by snare technique. It was retrieved. There was moderate diverticulosis scattered throughout the sigmoid area. Lastly in the ascending I did note two small AVM' s. The Scope was retroflexed and looked at the anal canal which revealed non- engorged internal hemorrhoids. The prep was good and the withdraw time was 18 minutes and 30 seconds. The patient tolerated the procedure well with stable vital signs and pulse oximetry throughout. IMPRESSION: 1. 12 polyps removed 2. 2 small AVM's in the right colon 3. 2 lipomas at the hepatic flexure 4. Moderate diverticulosis RECOMMENDATIONS: 1. High fiber diet 2. Office visit as needed 3. Await pathology results if everything is benign as expected I recommend a repeat colonoscopy exam again in one year for surveillance. 4. Restart Eliquis tomorrow 5. She is given instructions verbally and written on signs and symptoms she needs to watch for complications and what to do. CC: Dr. Agustin EMERSON
== END 2018-04-28 10:30 | disposition home or self-care (01) ==
LOC: SURG 06:33
PROVIDERS: ATTEND Internal Medicine Gastroenterology
DX: Z86.010 Personal history of colon polyps (principal); R19.5 Other fecal abnormalities; D50.0 Iron deficiency anemia secondary to blood loss (chronic); K63.5 Polyp of colon; D12.2 Benign neoplasm of ascending colon; D12.0 Benign neoplasm of cecum; D12.3 Benign neoplasm of transverse colon; D12.5 Benign neoplasm of sigmoid colon

== ENCOUNTER 2018-05-08 08:52 | Outpatient (CLI) | payer OTHER | END 2018-05-08 08:53 | disposition home or self-care (01) | LOC: RHC-LAB 08:52 | PROVIDERS: ATTEND General Practice | DX: Z87.19 Personal history of other diseases of the digestive system (principal) ==

== ENCOUNTER 2018-06-01 07:56 | Outpatient (CLI) | payer OTHER | END 2018-06-01 07:57 | disposition home or self-care (01) | LOC: RHC-LAB 07:56 | PROVIDERS: ATTEND General Practice | DX: I10 Essential (primary) hypertension (principal); N18.3 Chronic kidney disease, stage 3 (moderate); Z87.19 Personal history of other diseases of the digestive system | CPT/HCPCS: 36415; 85025 ==

== ENCOUNTER 2018-06-29 08:09 | Outpatient (CLI) | payer OTHER | END 2018-06-29 08:10 | disposition home or self-care (01) | LOC: RHC-LAB 08:09 | PROVIDERS: ATTEND General Practice | DX: K92.2 Gastrointestinal hemorrhage, unspecified (principal); D64.9 Anemia, unspecified; N18.3 Chronic kidney disease, stage 3 (moderate) | CPT/HCPCS: 36415; 80069; 85008; 85025 ==